=== PATIENT | female | born 1970 | race Caucasian/White ===

== ENCOUNTER 2016-07-15 07:17 | Emergency (ER) | payer BC ==
[2016-07-15 07:27] VITALS: BP 114/72
--- NOTE | 2016-07-15 07:50 | UC ---
Complaint Female HPI - HPI Summary HPI Summary: 3 DAYS OF URINARY FREQUENCY, BURNING AND URGENCY. NO FEVER OR NAUSEA. DOES HAVE SOME LOW BACK PAIN. SAW PCP YESTERDAY AND HAD URINE SENT FOR CX. WAS TOLD TO CALL TODAY AT NOON FOR RESULTS. WAS PRESCRIBED PYRIDIUM BUT NO ABX. PT STATES SHE IS VERY UNCOMFORTABLE AND WAS HOPING FOR ABX. - History Of Current Complaint Chief Complaint: UCGU Stated Complaint: URINARY ISSUE Time Seen by Provider: 07/15/16 07:20 Hx Obtained From: Patient Hx Last Menstrual Period: 06/26/16 Onset/Duration: Gradual Onset, Lasting Days, Still Present Timing: Constant Severity Initially: Mild Severity Currently: Moderate Pain Intensity: 6 Pain Scale Used: 0-10 Numeric Character: Burning Aggravating Factor(s): Urination Alleviating Factor(s): Nothing Associated Signs And Symptoms: Positive: Back Pain. Negative: Fever, Vaginal Discharge, Nausea, Vomiting(# Of Episodes =) - Allergies/Home Medications Allergies/Adverse Reactions: Allergies Allergy/AdvReac Type Severity Reaction Status Date / Time No Known Allergies Allergy Verified 07/11/15 11:20 Home Medications: Home Medications Ibuprofen [Advil] 400 mg PO 07/15/16 [History] Phenazopyridine TAB* [Pyridium TAB*] 100 mg PO TID 07/15/16 [History Confirmed 07/15/16] PMH/Surg Hx/FS Hx/Imm Hx Endocrine History Of: Reports: Thyroid Disease - HYPOTHYROID, Hypothyroidism Psychological History Of: Reports: Anxiety - history of Cancer History Of: Denies: Breast Cancer - Surgical History Surgical History: Yes Surgery Procedure, Year, and Place: 3 C-sections. vulvarvestibulectomy. WISDOM TEETH EXTRACTED. cyst removal gyne - Family History Known Family History: Positive: Hypertension - Social History Alcohol Use: Rare Substance Use Type: None Smoking Status (MU): Never Smoked Tobacco - Immunization History Most Recent Influenza Vaccination: never Most Recent Tetanus Shot: up to date Review of Systems Constitutional: Negative Respiratory: Negative Cardiovascular: Negative Gastrointestinal: Abdominal Pain Genitourinary: Dysuria, Frequency, Urgency All Other Systems Reviewed And Are Negative: Yes Physical Exam Triage Information Reviewed: Yes Appearance: Well-Appearing, No Pain Distress, Well-Nourished Vital Signs: Initial Vital Signs Temp 98.1 F 07/15/16 07:23 Pulse 73 07/15/16 07:23 Resp 18 07/15/16 07:23 BP 114/72 07/15/16 07:23 Pulse Ox 100 07/15/16 07:23 Vital Signs Reviewed: Yes Eyes: Positive: Conjunctiva Clear ENT: Positive: Hearing grossly normal Neck: Positive: Supple Respiratory: Positive: No respiratory distress, No accessory muscle use Cardiovascular: Positive: Pulses Normal Abdomen Description: Positive: Soft, Other: - TTP SUPRAPUBIC. Negative: CVA Tenderness (R), CVA Tenderness (L), Distended, Guarding Musculoskeletal: Positive: No Edema Neurological: Positive: Alert Psychological: Positive: Age Appropriate Behavior Skin: Negative: rashes Diagnostics - Laboratory Diagnostic Studies Completed/Ordered: URINE DIP SP. GR 1.035, 3+ LEUKS, 2+ BLOOD Complaint Female Dx - Differential Dx/Diagnosis Provider Diagnoses: UTI Discharge - Discharge Plan Condition: Stable Disposition: HOME Prescriptions: Sulfamethox/Trimethoprim DS* [Bactrim DS 800/160 TAB*] 1 tab PO BID #10 tab Patient Education Materials: Urinary Tract Infection in Women (ED) Referrals: Kirk BAINS,Jason Perry [Primary Care Provider] - If Needed
== END 2016-07-15 07:50 | disposition home or self-care (01) ==
LOC: UCEAST 07:17
DX: N39.0 Urinary tract infection, site not specified (principal); B96.20 Unspecified Escherichia coli [E. coli] as the cause of diseases classified elsewhere
CPT/HCPCS: 81002; 87077; 87086; 87186; 99212; G0463

== ENCOUNTER 2017-02-17 15:56 | Emergency (ER) | payer BC ==
[2017-02-17 16:05] VITALS: BP 105/71
--- NOTE | 2017-02-17 17:13 | UC ---
Skin Complaint HPI - HPI Summary HPI Summary: HAD BEEN WORKING IN [place] 1 WK AGO AND CAMPING FOR 3 DAYS. HAS DEVELOPED ITCHY SPREADING RASH ON HANDS ARMS NECK AND LOWER LEGS. - History of Current Complaint Chief Complaint: UCRash Time Seen by Provider: 02/17/17 16:19 Stated Complaint: RASH Hx Obtained From: Patient Hx Last Menstrual Period: one week ago Onset/Duration: Gradual Onset, Lasting Days, Still Present Skin Exposure Onset/Duration: Days Ago Timing: Constant Onset Severity: Mild Current Severity: Moderate Location: Diffuse Character: Pruritus, Raised Aggravating: Touch Alleviating: Nothing Associated Signs & Symptoms: Positive: Rash. Negative: Fever, Chills, Cough, Syncope, Drainage, Bruising Related History: Possible Reaction to: Insect, Possible Reaction to: Environmental Exposure - Allergy/Home Medications Allergies/Adverse Reactions: Allergies Allergy/AdvReac Type Severity Reaction Status Date / Time No Known Allergies Allergy Verified 02/17/17 16:05 Home Medications: Home Medications Loratadine [Claritin 10 MG CAP] 10 mg PO PRN 02/17/17 [History] Review of Systems Constitutional: Negative Skin: Rash Eyes: Negative ENT: Negative Respiratory: Negative Cardiovascular: Negative Gastrointestinal: Negative Genitourinary: Negative Motor: Negative Neurovascular: Negative Musculoskeletal: Negative Neurological: Negative Psychological: Negative All Other Systems Reviewed And Are Negative: Yes PMH/Surg Hx/FS Hx/Imm Hx Previously Healthy: Yes - Surgical History Surgical History: Yes Surgery Procedure, Year, and Place: 3 C-sections. vulvarvestibulectomy. WISDOM TEETH EXTRACTED. cyst removal gyne - Family History Known Family History: Positive: Hypertension - Social History Occupation: Employed Full-time Lives: With Family Alcohol Use: Rare Substance Use Type: None Smoking Status (MU): Never Smoked Tobacco - Immunization History Most Recent Influenza Vaccination: never Most Recent Tetanus Shot: up to date Physical Exam Triage Information Reviewed: Yes Appearance: Well-Appearing, No Pain Distress, Well-Nourished Vital Signs: Initial Vital Signs Temp 99.3 F 02/17/17 16:02 Pulse 79 02/17/17 16:02 Resp 12 02/17/17 16:02 BP 105/71 02/17/17 16:02 Pulse Ox 100 02/17/17 16:02 Vital Signs Reviewed: Yes Eye Exam: Normal ENT: Positive: Normal ENT inspection, Hearing grossly normal, TMs normal Dental Exam: Normal Neck exam: Normal Neck: Positive: Supple, Nontender Respiratory Exam: Normal Respiratory: Positive: Chest non-tender, Lungs clear, Normal breath sounds, No respiratory distress, No accessory muscle use Cardiovascular Exam: Normal Cardiovascular: Positive: RRR, No Murmur Abdominal Exam: Normal Abdomen Description: Positive: Nontender, No Organomegaly Musculoskeletal Exam: Normal Neurological Exam: Normal Psychological Exam: Normal Skin: Positive: rashes - BILATERAL ARMS, NECK, LOW BACK AND LOWER LEGS Course/Dx - Differential Diagnoses - Skin Complaint Differential Diagnoses: Cellulitis, Contact Dermatitis, Eczema, Head Lice, MRSA , Poison [place], Poison [place], Scabies, Tick Born Illness, Urticaria - Diagnoses Provider Diagnoses: CONTACT DERMATITIS Discharge - Discharge Plan Condition: Stable Disposition: HOME Prescriptions: Triamcinolone 0.025% OINT * 1 applic TOPICAL TID #1 tube predniSONE TAB* [Deltasone TAB*] 10 mg PO DAILY #30 tab Patient Education Materials: Contact Dermatitis (ED) Referrals: Jason Almendarez [Primary Care Provider] - Additional Instructions: BENADRYL 50mg PO BID FOR FIVE DAYS
== END 2017-02-17 16:45 | disposition home or self-care (01) ==
LOC: UCEAST 15:56
DX: L25.9 Unspecified contact dermatitis, unspecified cause (principal)
CPT/HCPCS: 99202; G0463

== ENCOUNTER 2017-03-12 08:01 | Emergency (ER) | payer BC ==
[2017-03-12 08:13] VITALS: BP 113/71
--- NOTE | 2017-03-12 08:56 | UC ---
Rodriguez Hunt Angela, scribed for Sheila Weinstein MD on 03/12/17 at 0819 . Skin Complaint HPI - HPI Summary HPI Summary: This pt is a 46 y/o female presenting to [facility] c/o rash x1 month, now with a new rash on bilateral hands. She notes she was camping on February 13 and was told it was bed bugs; she was treated for bed bugs. 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 No one in her household has these rashes. Due to the rash being pruritic, she came to Urgent care on 02/17/17 and was treated for poison jesion here. She took prednisone and used an antibiotic ointment. Pt then went to her PCP and was told it was scabies, so she was treated for it with 5% Permethrin. She has been using sulfur soap, essential oils, rubbing alcohol, and bleach with no relief. Pt used a brillo pad on her right hand that has scraped her skin off. Pt reports having had itchy patches on her trunk and neck, now she is getting new itchy patches of rash on hands. She states it is most itchy at night. Pt has taken Bendaryl 5 or 6 times a day. She denies rash involvement of her groin, fever, throat tightening, facials swelling, any other complaints. - History of Current Complaint Chief Complaint: UCSkin Time Seen by Provider: 03/12/17 08:15 Stated Complaint: RASH Hx Obtained From: Patient Hx Last Menstrual Period: 03/05/17 Onset/Duration: Lasting Weeks, Still Present Skin Exposure Onset/Duration: Weeks Ago Location: Hand (Right), Hand (Left), Other - neck and truck Associated Signs & Symptoms: Positive: Rash - pruritic. Negative: Nausea, Vomiting, Fever, Chills, Cough, Chest Pain, Throat Tightening, Bruising - Allergy/Home Medications Allergies/Adverse Reactions: Allergies Allergy/AdvReac Type Severity Reaction Status Date / Time No Known Allergies Allergy Verified 03/12/17 08:06 Home Medications: Home Medications diPHENhydraMINE PO* [Benadryl PO 25 MG TAB*] 50 mg PO 03/12/17 [History] Review of Systems Constitutional: Negative Skin: Rash Eyes: Negative ENT: Negative Respiratory: Negative Cardiovascular: Negative Gastrointestinal: Negative Genitourinary: Negative Motor: Negative Neurovascular: Negative Musculoskeletal: Negative Neurological: Negative Psychological: Anxious - Poor sleep, up at night cleaning and is stressed about the possibility of scabies. All Other Systems Reviewed And Are Negative: Yes PMH/Surg Hx/FS Hx/Imm Hx Endocrine History: Hypothyroidism Other Endocrine History: DENIES: diabetes Other Cardiovascular History: DENIES: HTN - Surgical History Surgical History: Yes Surgery Procedure, Year, and Place: 3 C-sections. vulvarvestibulectomy. WISDOM TEETH EXTRACTED. 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 Vital Signs: Initial Vital Signs Temp 99.0 F 03/12/17 08:07 Pulse 84 03/12/17 08:07 Resp 16 03/12/17 08:07 BP 113/71 03/12/17 08:07 Pulse Ox 100 03/12/17 08:07 Vital Signs Reviewed: Yes Eye Exam: Normal Eyes: Positive: Conjunctiva Clear ENT: Positive: Pharynx normal Neck exam: Normal Neck: Positive: Supple, Nontender, No Lymphadenopathy Respiratory: Positive: Lungs clear Cardiovascular: Positive: RRR, No Murmur Abdomen Description: Positive: Nontender, No Organomegaly Musculoskeletal Exam: Normal Neurological Exam: Normal Skin Exam: Other - neck with faint patchy erythema. Forearms with patchy papules , several areas of full skin thickness abrasions from scratching-0ne on the right radial wrist is about 6 mm, one on the left hand dorsum about 5 mm. Numerous itchy papules to the mid forearm. Skin diffusely dry. Course/Dx - Course Course Of Treatment: Lubricants and topical steroids, topical antibiotic to abraded areas. Hydroxyzine for itching. - Differential Diagnoses - Skin Complaint Differential Diagnoses: Scabies, Other - prurigo nodularis. - Diagnoses Provider Diagnoses: pruritis post scabies. Discharge - Discharge Plan Condition: Stable Disposition: HOME Prescriptions: hydrOXYzine HCL TAB* [Atarax 25 MG TAB*] 25 mg PO TID PRN #30 tab PRN Reason: Itching Patient Education Materials: Scabies (ED) Referrals: Jason Almendarez [Primary Care Provider] - Jazmine Martin MD [Medical Doctor] - Additional Instructions: I believe that your scabies is effectively treated. At this time, you want to stop the itching and allow your skin to heal. Use triamcinolone on the itchy areas, and topical antibiotic on the areas of crusting. Apply a good skin lubricant such as CeraVE over the topical triamcinolone. If you are not improving, I suggest a dermatology evaluation. The documentation as recorded by the Rodriguez ford Angela accurately reflects the service I personally performed and the decisions made by me, Sheila Weinstein MD.
== END 2017-03-12 09:06 | disposition home or self-care (01) ==
LOC: UCEAST 08:01
DX: L29.9 Pruritus, unspecified (principal); E03.9 Hypothyroidism, unspecified
CPT/HCPCS: 99212; G0463

== ENCOUNTER 2017-11-24 13:04 | Emergency (ER) | payer BC ==
[2017-11-24 15:19] VITALS: BP 113/72
--- NOTE | 2017-11-24 16:43 | UC ---
Complaint Female HPI - HPI Summary HPI Summary: 46 yo WF p/w suprapubic pain x few days. She is on her menses currently but denies urinary frequency, urgency or dysuria. Has had 2 week old tampon removed 2 weeks ago and was tx'd with Flagyl BID x 7 days for bacterial vaginosis after tampon removal byut still "feels crampy". Has one partner and is not worried about STD's NO vaginal d/c or dyspareunia - History Of Current Complaint Chief Complaint: UCGeneralIllness Stated Complaint: PERSONAL Time Seen by Provider: 11/24/17 15:31 Hx Obtained From: Patient Hx Last Menstrual Period: 11/19/2017 ?: No Onset/Duration: Sudden Onset Timing: Constant Severity Initially: Moderate Severity Currently: Moderate Pain Intensity: 2 - Allergies/Home Medications Allergies/Adverse Reactions: Allergies Allergy/AdvReac Type Severity Reaction Status Date / Time No Known Allergies Allergy Verified 03/12/17 08:06 Home Medications: Home Medications Ibuprofen [Advil] 200 mg PO 11/24/17 [History] PMH/Surg Hx/FS Hx/Imm Hx Previously Healthy: Yes - Surgical History Surgical History: Yes Surgery Procedure, Year, and Place: 3 C-sections. vulvarvestibulectomy. WISDOM TEETH EXTRACTED. cyst removal gyne - Family History Known Family History: Positive: Hypertension Negative: Diabetes - Social History Alcohol Use: Rare Substance Use Type: None Smoking Status (MU): Never Smoked Tobacco - Immunization History Most Recent Influenza Vaccination: never Most Recent Tetanus Shot: up to date Review of Systems Constitutional: Negative Skin: Negative Eyes: Negative ENT: Negative Respiratory: Negative Cardiovascular: Negative Gastrointestinal: Negative Genitourinary: Other - suprapubic pain, mild Motor: Negative Neurovascular: Negative Musculoskeletal: Negative Neurological: Negative Psychological: Negative All Other Systems Reviewed And Are Negative: Yes Physical Exam Triage Information Reviewed: Yes Vital Signs: Initial Vital Signs Temp 36.9 C 11/24/17 15:14 Pulse 77 11/24/17 15:14 Resp 16 11/24/17 15:14 BP 113/72 11/24/17 15:14 Pulse Ox 100 11/24/17 15:14 Eye Exam: Normal ENT Exam: Normal Dental Exam: Normal Neck exam: Normal Neck: Positive: 1 Respiratory Exam: Normal Cardiovascular Exam: Normal Abdomen Description: Positive: Other: - mild suprapubic tenderness Musculoskeletal Exam: Normal Neurological Exam: Normal Psychological Exam: Normal Skin Exam: Normal Complaint Female Dx - Course Course Of Treatment: dysmenorrhea vs acute cystitis w/o typical urinary sx, sent out for Ucx per pt request. Advised pt to go to [facility] after menses over - Differential Dx/Diagnosis Provider Diagnoses: UA - trace urine- sent out for urine cx Discharge - Sign-Out/Discharge Documenting (check all that apply): Discharge/Admit/Transfer - Discharge Plan Condition: Stable Disposition: HOME Prescriptions: Naproxen [Naprosyn 500 mg tab] 500 mg PO BID 10 Days #20 tablet Nitrofurantoin Monohyd/M-Cryst [Macrobid 100 mg Capsule] 100 mg PO BID 7 Days # 14 cap Patient Education Materials: Urinary Tract Infection in Women (ED) Referrals: Kirk BAINS,Jason Perry [Primary Care Provider] - Additional Instructions: follow up with [facility] after your menses are over - Billing Disposition and Condition Condition: STABLE Disposition: HOME
--- NOTE | 2017-11-26 07:25 | UC ---
- Progress Note Progress Note: notify pt no UTI stop antibiotic recheck for new or worsening symptoms Discharge - Sign-Out/Discharge Documenting (check all that apply): Post-Discharge Follow Up - Discharge Plan Condition: Stable Disposition: HOME Prescriptions: Naproxen [Naprosyn 500 mg tab] 500 mg PO BID 10 Days #20 tablet Nitrofurantoin Monohyd/M-Cryst [Macrobid 100 mg Capsule] 100 mg PO BID 7 Days # 14 cap Patient Education Materials: Urinary Tract Infection in Women (ED) Referrals: Kirk BAINS,Jason Perry [Primary Care Provider] - Additional Instructions: follow up with [facility] after your menses are over - Billing Disposition and Condition Condition: STABLE Disposition: HOME
== END 2017-11-24 16:36 | disposition home or self-care (01) ==
LOC: UCEAST 13:04
DX: R10.9 Unspecified abdominal pain (principal)
CPT/HCPCS: 81003; 87086; 99212; G0463

== ENCOUNTER 2018-01-19 11:19 | Emergency (ER) | payer BC ==
--- NOTE | 2018-01-19 12:41 | UC ---
Complaint Female HPI - HPI Summary HPI Summary: 47 yo female presents requesting test. She tells me that 4 months ago she began a new OBC from her OBGYN. The first 3 months she had spotting around the times of her period, but this month she did not get her period at all. She has been sexually active without condoms. She is concerned she might be , but took several at home tests that were all negative. She has no symptoms. Denies fever, chills, abdominal pain, n/v/d/c, dysuria, vaginal bleeding/discharge. - History Of Current Complaint Stated Complaint: TESTING Time Seen by Provider: 01/19/18 12:41 Hx Obtained From: Patient Hx Last Menstrual Period: 11/19/2017 Severity Currently: None - Allergies/Home Medications Allergies/Adverse Reactions: Allergies Allergy/AdvReac Type Severity Reaction Status Date / Time No Known Allergies Allergy Verified 01/19/18 12:45 PMH/Surg Hx/FS Hx/Imm Hx Endocrine History: Hypothyroidism - Surgical History Surgical History: Yes Surgery Procedure, Year, and Place: 3 C-sections. vulvarvestibulectomy. WISDOM TEETH EXTRACTED. cyst removal gyne - Family History Known Family History: Positive: Hypertension Negative: Diabetes - Social History Occupation: Employed Full-time Lives: With Family Alcohol Use: Rare Substance Use Type: None Smoking Status (MU): Never Smoked Tobacco - Immunization History Most Recent Influenza Vaccination: never Most Recent Tetanus Shot: up to date Review of Systems Constitutional: Negative Skin: Negative Respiratory: Negative Cardiovascular: Negative Gastrointestinal: Negative Genitourinary: Negative Neurological: Negative Psychological: Negative All Other Systems Reviewed And Are Negative: Yes Physical Exam - Summary Physical Exam Summary: GENERAL: NAD. WDWN. No pain distress. SKIN: No rashes, sores, lesions, or open wounds. NECK: Supple. Nontender. No lymphadenopathy. CHEST: CTAB. No r/r/w. No accessory muscle use. Breathing comfortably and in no distress. CV: RRR. Without m/r/g. Pulses intact. Brisk cap refill. ABDOMEN: Soft. NTTP. No distention or guarding. No CVA tenderness. Bowel sounds present NEURO: Alert. CN II-XII grossly intact. PSYCH: Age appropriate behavior. Triage Information Reviewed: Yes Vital Signs: Vital Signs: Temp Pulse Resp BP Pulse Ox 98.5 F 75 16 105/71 100 01/19/18 12:40 01/19/18 12:40 01/19/18 12:40 01/19/18 12:40 01/19/18 12:40 Vital Signs Reviewed: Yes Complaint Female Dx - Course Course Of Treatment: Urine negative. Will draw for blood HCG and have her f/u with OBGYN. - Differential Dx/Diagnosis Provider Diagnoses: Missed period Discharge - Sign-Out/Discharge Documenting (check all that apply): Patient Departure - Discharge Plan Condition: Stable Disposition: HOME Referrals: Kirk BAINS,Jason Perry [Primary Care Provider] - Additional Instructions: If you develop a fever, shortness of breath, chest pain, new or worsening symptoms - please call your PCP or go to the ED. - Billing Disposition and Condition Condition: STABLE Disposition: Home
[2018-01-19 12:45] VITALS: BP 105/71
== END 2018-01-19 13:35 | disposition home or self-care (01) ==
LOC: UCEAST 11:19
DX: N91.2 Amenorrhea, unspecified (principal)
CPT/HCPCS: 36415; 84702; 99211; G0463

== ENCOUNTER 2019-08-31 07:09 | Emergency (ER) | payer BC ==
[2019-08-31 07:33] VITALS: BP 116/85
[2019-08-31] MEDS: Ibuprofen TAB* 600 MG PO ONE ×2 (07:35→07:36)
[2019-08-31] MEDS ORDERED: Ibuprofen TAB* 400 MG PO ONE (07:37)
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
== END 2019-08-31 09:33 | disposition home or self-care (01) ==
LOC: UCEAST 07:09
DX: M54.2 Cervicalgia (principal); M54.6 Pain in thoracic spine; M54.89 Other dorsalgia; E03.9 Hypothyroidism, unspecified; V49.88XA Car occupant (driver) (passenger) injured in other specified transport accidents, initial encounter; Y92.488 Other paved roadways as the place of occurrence of the external cause; Z79.890 Hormone replacement therapy
CPT/HCPCS: 71046; 72020; 72050; 72070; 72110; 99211; A9270-GY; G0463